=== PATIENT | female | born 1975 ===

== ENCOUNTER 2017-11-23 16:45 | Emergency (ER) | payer BC ==
[2017-11-23] MEDS ORDERED: DiphenhydrAMINE 50 mg/ml Inj IVP STA (17:27)
--- NOTE | 2017-11-23 17:31 | C.PDOC ---
History Of Present Illness 42 year old female presents to the ER complaining of an allergic reaction status post eating almonds 3 hours ago. Patient states she has allergies to avocado, peanuts, and almonds, but she has never had a reaction like this. She states her face, eyelids, lips and throat started swelling up. She has trouble breathing and her voice is muffled. She denies any trouble swallowing, chest pain, or skin rash. Time Seen by Provider: 11/23/17 17:19 Chief Complaint (Nursing): Allergic Reaction History Per: Patient, Family (Daugther ) History/Exam Limitations: no limitations Onset/Duration Of Symptoms: Hrs (3 hours ) Current Symptoms Are (Timing): Still Present Context: Food Possible Cause: Food (almonds) Associated Symptoms: Dyspnea. denies: Skin Rash, Trouble Swallowing, Chest Pain Past Medical History Reviewed: Historical Data, Nursing Documentation, Vital Signs Vital Signs: Last Vital Signs Temp 98.9 F 11/23/17 16:53 Pulse 88 11/23/17 16:53 Resp 19 11/23/17 16:53 BP 163/100 H 11/23/17 16:53 Pulse Ox 96 11/23/17 17:41 - Medical History PMH: Asthma, HTN Surgical History: No Surg Hx Family History: States: No Known Family Hx - Social History Hx Alcohol Use: No Hx Substance Use: No Review Of Systems Eyes: Positive for: Eyelid Inflammation ENT: Positive for: Throat Swelling Cardiovascular: Negative for: Chest Pain Respiratory: Positive for: Other (Dyspnea ) Skin: Negative for: Rash Physical Exam - Physical Exam Appears: Non-toxic, Other (Mild discomfort ) Skin: Normal Color, Warm, Dry, No Rash Head: Atraumatic, Normacephalic Eye(s): bilateral: Eyelid Inflammation (with swelling) Nose: Normal Oral Mucosa: Moist, No Drooling Tongue: Normal Appearing, No Swelling Throat: Normal, No Erythema, No Exudate, No Drooling, Other (Able to swallow and speak ) Neck: Supple Chest: Symmetrical Cardiovascular: Rhythm Regular, No Other Respiratory: Normal Breath Sounds, No Rales, No Rhonchi, No Wheezing, No Other ( Tachypnea ) Neurological/Psych: Oriented x3, Normal Speech Gait: Steady ED Course And Treatment O2 Sat by Pulse Oximetry: 96 (RA) Pulse Ox Interpretation: Normal Progress Note: Patient treated with IV Solumedrol, Pepcid and Benadryl and IM Epi. Reevaluation Time: 19:21 Reassessment Condition: Improved (Facial swelling resolved and patient feels much better. Lungs clear and breathing normal.) Medical Decision Making Medical Decision Making: Plan: - Benadryl - Epinephrine 0.3mg IM - Pepcid 20mg IVP - Solu-medrol 125mg V - Reassess Disposition Counseled Patient/Family Regarding: Studies Performed, Diagnosis, Need For Followup - Disposition Referrals: Petty Pennington MD [Medical Doctor] - Disposition: HOME/ ROUTINE Disposition Time: 19:23 Condition: IMPROVED Additional Instructions: Take Pepcid AC twice a day and Benadryl 1 tablet every 6 hours for the next 3 days. Prescriptions: Prednisone 50 mg PO DAILY #4 tablet Instructions: Food Allergy Forms: [facility] ([place]) - Clinical Impression Clinical Impression: Food allergy - Scribe Statement The provider has reviewed the documentation as recorded by the Leeanneibramo Salinas All medical record entries made by the Leeanneibramo were at my direction and personally dictated by me. I have reviewed the chart and agree that the record accurately reflects my personal performance of the history, physical exam, medical decision making, and the department course for this patient. I have also personally directed, reviewed, and agree with the discharge instructions and disposition.
[2017-11-23] MEDS ORDERED: DiphenhydrAMINE 50 mg/ml Inj ONE (17:34)
[2017-11-23] MEDS ORDERED: EPINEPHrine 1 mg/ml (1:1000) Inj ONE (17:37)
[2017-11-23 19:43] VITALS: BP 156/82; PULSE 78; RESP 18; TEMP 98.4; O2SAT 99
== END 2017-11-23 19:43 | disposition home or self-care (01) ==
LOC: C.ER 16:45
DX: L27.2 Dermatitis due to ingested food (principal); I10 Essential (primary) hypertension
CPT/HCPCS: 96372; 96374; 96375; 99285; J0171; J1200; J2930